=== PATIENT | female | born 1980 | race Caucasian/White ===

== ENCOUNTER 2018-03-06 13:32 | Emergency (ER) | payer BC, OTHER ==
[2018-03-06 13:41] VITALS: BP 126/86
[2018-03-06] MEDS ORDERED: Acetaminophen/HYDROcodone 325-5 MG Tab PO ONE (14:18)
--- NOTE | 2018-03-06 14:18 | EDM.PDOC ---
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 She complains of pain to all 5 of her toes, plus her distal right foot. She is otherwise uninjured. No prior right foot injury. The patient's PCP is Dr. Benoit. Treatments DISTRIBUTION AGENT: Reports: Other (see below) Other Treatments DISTRIBUTION AGENT: ice applied to top of foot Right Feet Pain Score (Numeric/FACES): 8 - Related Data Allergies Allergy/AdvReac Type Severity Reaction Status Date / Time No Known Allergies Allergy Verified 10/28/15 19:14 Home Meds: Home Meds Acetaminophen/HYDROcodone [[place] 325-5 MG] 1 - 2 tab PO Q6H PRN #14 tablet 03/06 [Rx] Phentermine HCl 15 mg PO DAILY 03/06/18 [History] Past Medical History - Past Surgical History Female Surgical History: Reports: Tubal Ligation Social & Family History - Tobacco Use Smoking Status *Q: Current Every Day Smoker Years of Tobacco use: 19 Packs/Tins Daily: 0.3 - Caffeine Use Caffeine Use: Reports: Coffee - Alcohol Use Alcohol Use History: Yes Alcohol Use Frequency: Socially - Recreational Drug Use Recreational Drug Use: No - Living Situation & Occupation Living situation: Reports: , with Spouse, with Family (5 kids) Occupation: Employed ([employer] F[employer]ER at [employer]) Review of Systems - Review of Systems Review Of Systems: ROS reveals no pertinent complaints other than HPI. ED EXAM, GENERAL - Physical Exam Exam: See Below Exam Limited By: No Limitations General Appearance: Alert, WD/WN, Mild Distress Extremities: Other (Mild swelling to all 5 toes, including toe #3, but no other visible abnormality, such as a hoof demarcation, erythema, ecchymosis, or abrasion. Neurovascular status of the right foot is intact.) Course - Vital Signs Last Recorded V/S: Last Vital Signs Temp 36.6 C 03/06/18 13:40 Pulse 94 03/06/18 13:40 Resp 20 03/06/18 13:40 BP 126/86 03/06/18 13:40 Pulse Ox 100 03/06/18 13:40 - Orders/Labs/Meds Orders: Active Orders 24 hr Category Date Time Status DME for Discharge [COMM] Stat Oth 03/06/18 14:19 Ordered Meds: Medications Discontinued Medications Generic Name Dose Route Start Last Admin Trade Name Freq PRN Reason Stop Dose Admin Hydrocodone Bitart/Acetaminophen 2 tab 03/06/18 14:18 03/06/18 14:39 [place] 325-5 Mg PO 03/06/18 14:19 2 tab ONETIME ONE Administration Ibuprofen 600 mg 03/06/18 14:26 03/06/18 14:38 Motrin PO 03/06/18 14:27 600 mg ONETIME ONE Administration - Re-Assessments/Exams Free Text/Narrative Re-Assessment/Exam: 03/06/18 14:11 3-view radiographs of the right foot appear to demonstrate a fracture and moderate posterior displacement of the proximal phalanx of the third toe. No other injuries seen. Formal read per the Radiologist pending. 03/06/18 14:20 The patient's 3rd toe be rai taped to her 2nd toe. She'll be fitted for an ortho shoe. She will receive 2 tablets of [place] here in the ED, and I will prescribe her additional. She is to ice and elevate her right foot is much as possible over the next 2 days, and I will refer her to Dr. Arias. Departure - Departure Time of Disposition: 14:22 Disposition: Home, Self-Care 01 Condition: Fair Clinical Impression: Closed fracture of phalanx of right third toe - Discharge Information *PRESCRIPTION DRUG MONITORING PROGRAM REVIEWED*: Not Applicable *COPY OF PRESCRIPTION DRUG MONITORING REPORT IN PATIENT FREDDY: Not Applicable Prescriptions: Acetaminophen/HYDROcodone [[place] 325-5 MG] 1 - 2 tab PO Q6H PRN #14 tablet PRN Reason: Pain (Severe 7-10) Instructions: Toe Fracture, [id number] Referrals: Gautam Fong MD [Primary Care Provider] - Garland Arias MD [Physician] - Forms: ED Department Discharge Additional Instructions: You were seen in the emergency room after a horse stomped on your right foot. Workup in the ER included x-rays of your right foot, which found a fracture of the distal aspect of the proximal phalanx of your third toe, with posterior displacement. Your third toe was rai taped to your second toe. You may replace this rai tape daily. You have been fitted with an ortho shoe, which you may find to be more comfortable to walk in than soft shoes. Elevate and ice your right foot as much as possible over the next 2-3 days, to help minimize swelling. Take [id number] ibuprofen, 2-3 tablets (400-600 mg) every 8 hours, with food, [id number]. A prescription for the opioid pain reliever [place] has been provided to you. Take 1-2 tablets up to every 6 hours, as needed for pain not relieved by ibuprofen. If you take Roan[place], do not drive for 10 hours afterwards. [place] will likely cause constipation, so consider taking a stool softener. Follow-up with the orthopedic surgeon Dr. Garland Arias at the next available appointment. If any other problems, please do not hesitate to return to the ER. - My Orders Last 24 Hours: My Active Orders 03/06/18 14:19 DME for Discharge [COMM] Stat - Assessment/Plan Last 24 Hours: My Active Orders 03/06/18 14:19 DME for Discharge [COMM] Stat
[2018-03-06] MEDS ORDERED: Ibuprofen 600 MG Tab PO ONE (14:26)
--- NOTE | 2018-03-07 07:12 | CR ---
Right foot: Four views of the right foot were obtained. Comparison: No prior foot exam. Mildly displaced fracture identified within the distal proximal phalanx of the third toe. No additional fracture or other bony abnormality is seen. Impression: 1. Mildly displaced fracture within the proximal phalanx of the third toe. 2. Right foot exam is otherwise unremarkable. Diagnostic code #3
== END 2018-03-06 14:45 | disposition home or self-care (01) ==
LOC: JD.ED 13:32
DX: S92.511A Displaced fracture of proximal phalanx of right lesser toe(s), initial encounter for closed fracture (principal); F17.210 Nicotine dependence, cigarettes, uncomplicated; W55.12XA Struck by horse, initial encounter
CPT/HCPCS: 73630; 99284; A9270

== ENCOUNTER 2018-07-25 09:34 | Emergency (ER) | payer OTHER ==
[2018-07-25 09:43] VITALS: BP 126/86
--- NOTE | 2018-07-25 10:15 | EDM.PDOC ---
ED HPI GENERAL MEDICAL PROBLEM - General Chief Complaint: Back Pain or Injury Stated Complaint: BACK INJURY Time Seen by Provider: 07/25/18 10:08 - History of Present Illness INITIAL COMMENTS - FREE TEXT/NARRATIVE: 38-year-old female presents emergency room low back pain. 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 This is not getting any better. Patient was moving a patient sliding across a horizontal surface. She felt a pop in her back and developed significant discomfort the pain is mostly on the right side not in the midline. She has not had any loss of bowel or bladder control she has pain that goes down the back of her thigh stops at the knee. 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 Right Lower Back Pain Score (Numeric/FACES): 10 - Related Data Allergies Allergy/AdvReac Type Severity Reaction Status Date / Time banana Allergy Anaphylactic Verified 07/25/18 09:43 Shock walnut Allergy Anaphylactic Verified 07/25/18 09:43 Shock Home Meds: Home Meds Phentermine HCl 15 mg PO DAILY 03/06/18 [History] Lotion Base No.203 [Versapro Lotion Base] 1 dose TOP ASDIRECTED 04/13/18 [ History] Multivitamin [Multiple Vitamins] 1 tab PO DAILY 04/13/18 [History] Acetaminophen/HYDROcodone [[place] 325-5 MG] 1 - 2 tab PO Q6H PRN #30 tablet 04/14 [Rx] Aspirin 325 mg PO BID #84 tab 04/14/18 [Rx] Famotidine [Pepcid] 20 mg PO Q12HR #20 tablet 07/25/18 [Rx] predniSONE 60 mg PO WITHBREAKFAST #15 tab 07/25/18 [Rx] Past Medical History - Past Health History Medical/Surgical History: Denies Medical/Surgical History HEENT History: Reports: Impaired Vision, Other (See Below) Other HEENT History: wears glasses Cardiovascular History: Reports: None Respiratory History: Reports: None Gastrointestinal History: Reports: None Genitourinary History: Reports: None CQ DEVELOPER History: Reports: None Musculoskeletal History: Reports: None Neurological History: Reports: None Psychiatric History: Reports: Anxiety, Bipolar Endocrine/Metabolic History: Reports: None Hematologic History: Reports: None Immunologic History: Reports: None Oncologic (Cancer) History: Reports: None Dermatologic History: Reports: None - Past Surgical History Head Surgeries/Procedures: Reports: None Cardiovascular Surgical History: Reports: None Respiratory Surgical History: Reports: None GI Surgical History: Reports: None Female Surgical History: Reports: Breast Implant, Tubal Ligation Endocrine Surgical History: Reports: None Neurological Surgical History: Reports: None Musculoskeletal Surgical History: Reports: None Oncologic Surgical History: Reports: None Dermatological Surgical History: Reports: None Social & Family History - Tobacco Use Smoking Status *Q: Current Every Day Smoker Years of Tobacco use: 20 Packs/Tins Daily: 0.2 - Caffeine Use Caffeine Use: Reports: Coffee - Recreational Drug Use Recreational Drug Use: No - Living Situation & Occupation Living situation: Reports: , with Spouse, with Family (5 kids) Occupation: Employed ([employer] at [employer] ED ROS GENERAL - Review of Systems Review Of Systems: See Below Constitutional: Reports: No Symptoms Respiratory: Reports: No Symptoms Cardiovascular: Reports: No Symptoms GI/Abdominal: Reports: No Symptoms : Reports: No Symptoms ED EXAM,LOWER BACK PAIN/INJURY - Physical Exam Exam: See Below Exam Limited By: No Limitations General Appearance: Alert, No Apparent Distress Neck: Normal Inspection, Supple, Non-Tender, Full Range of Motion. No: Lymphadenopathy (L), Lymphadenopathy (R) Respiratory/Chest: No Respiratory Distress, Lungs Clear, Normal Breath Sounds Cardiovascular: Regular Rate, Rhythm, No Edema, No Murmur Back Exam: Normal Inspection, Other (She has significant paraspinous tenderness on the right side from the SI joint on up into the lower thoracic region. She has no midline discomfort no bony discomfort. Straight leg raises are unremarkable.). No: CVA Tenderness (L), CVA Tenderness (R), Vertebral Tenderness Course - Vital Signs Last Recorded V/S: Last Vital Signs Temp 36.6 C 07/25/18 09:40 Pulse 92 07/25/18 09:40 Resp 18 07/25/18 09:40 BP 126/86 07/25/18 09:40 Pulse Ox 100 07/25/18 09:40 - Re-Assessments/Exams Free Text/Narrative Re-Assessment/Exam: 07/25/18 10:38 This patient is a 3 week history of low back injury strain. She is getting somewhat frustrated muscle relaxants haven't helped multiple visits to the chiropractor has not helped. She's using 1 ibuprofen 200 mg and one Tylenol 4 times a day and this is not working overtime this is actually getting worse. I had the opportunity to schedule sutures Dr. Arzate who believes her discomfort is coming from the SI joint and I believe this could very well be the case with some secondary muscle spasm in the right paraspinous and surrounding muscles. Discussed potential treatment options it seems best at this point as the patient is getting worse to her with some prednisone 60 mg daily for 5 days and close follow-up with Dr. Arzate. Departure - Departure Time of Disposition: 10:39 Disposition: Home, Self-Care 01 Clinical Impression: Low back strain, SI (sacroiliac) joint inflammation - Discharge Information Prescriptions: Famotidine [Pepcid] 20 mg PO Q12HR #20 tablet predniSONE 60 mg PO WITHBREAKFAST #15 tab Referrals: Gautam Fong MD [Primary Care Provider] - Forms: ED Department Discharge Additional Instructions: Return to the emergency room with any questions or problems. Follow-up with Dr. Arzate on or Wednesday. Stop ibuprofen Tylenol or any aspirin. Take prednisone as directed, this will be 3 tablets every morning for 5 days
== END 2018-07-25 10:54 | disposition home or self-care (01) ==
LOC: JD.ED 09:34
DX: S39.012A Strain of muscle, fascia and tendon of lower back, initial encounter (principal); M46.1 Sacroiliitis, not elsewhere classified; F17.210 Nicotine dependence, cigarettes, uncomplicated; Z91.018 Allergy to other foods; Z79.899 Other long term (current) drug therapy; X50.9XXA Other and unspecified overexertion or strenuous movements or postures, initial encounter
CPT/HCPCS: 99283

== ENCOUNTER 2023-07-16 12:08 | Emergency (ER) | payer MEDICAID, OTHER ==
[2023-07-16] MEDS ORDERED: Sodium Chloride 0.9% 10 ML Syringe FLUSH PRN (12:36)
[2023-07-16 12:59] LABS: BASOPHILS ABSOLUTE AUTO 0.1 K/mm3 (0.0-0.2); BASOPHILS PERCENT AUTO 1.1 % (0.0-1.0); EOSINOPHILS ABSOLUTE AUTO 0.1 K/mm3 (0.0-0.4); EOSINOPHILS PERCENT AUTO 2.2 % (0.0-6.0); HEMATOCRIT 37.7 % (37.0-47.0); HEMOGLOBIN 12.5 gm/dl (12.0-16.0); IMMATURE GRAN ABSOLUTE AUTO 0.02 K/mm3 (0.00-0.05); IMMATURE GRAN PERCENT AUTO 0.4 % (0.0-0.4); LYMPHOCYTES ABSOLUTE AUTO 1.7 K/mm3 (1.0-4.8); LYMPHOCYTES PERCENT AUTO 30.9 % (24.0-44.0); MEAN CORPUSCULAR HEMOGLOBIN 31.3 pg (28.0-32.0); MEAN CORPUSCULAR HGB CONC 33.2 g/dl (32.0-36.0); MEAN CORPUSCULAR VOLUME 94.5 fl (83.0-99.0); MEAN PLATELET VOLUME 8.6 fl (9.4-12.3); MONOCYTES ABSOLUTE AUTO 0.3 K/mm3 (0.0-0.8); MONOCYTES PERCENT AUTO 5.4 % (0.0-8.0); NEUTROPHILS ABSOLUTE AUTO 3.3 K/mm3 (1.8-7.7); PLATELET COUNT,PLT 234 K/mm3 (150-400); RED BLOOD CELL COUNT 3.99 M/mm3 (4.10-5.30); WHITE BLOOD CELL COUNT,WBC 5.51 K/mm3 (3.9-11.3)
[2023-07-16 13:30] LABS: A/G RATIO 1.1 (1-2); ALBUMIN 3.4 g/dl (3.4-5.0); ANION GAP 13.7 (5-15); BILIRUBIN TOTAL 0.2 mg/dL (0.2-1.0); CALCIUM 8.3 mg/dL (8.5-10.1); EST CRCL DRUG DOSING (CG) 66.51 mL/min; MAGNESIUM 2.1 mg/dL (1.8-2.4); POTASSIUM,K 3.7 mEq/L (3.5-5.1); PROTEIN TOTAL,TP 6.5 g/dl (6.4-8.2); TSH 1.697 uIU/mL (0.358-3.74)
[2023-07-16] MEDS ORDERED: Ketorolac 30 MG/ML SDV IVPUSH ONE (14:15)
[2023-07-16] MEDS ORDERED: Magnesium Sulfate (4.06 MEQ/ML) 5 GM/10 ML SDV IV ONE (14:15)
[2023-07-16 14:19] LABS: APPEARANCE,URINE CLEAR (Clear); BILIRUBIN,URINE NEGATIVE (Negative); COLOR,URINE YELLOW (Yellow); GLUCOSE,URINE NEGATIVE (Negative); KETONES,URINE NEGATIVE (Negative); LEUKOCYTE ESTERASE,URINE NEGATIVE (Negative); NITRITE,URINE NEGATIVE (Negative); OCCULT BLOOD,URINE 1+ (Negative); PROTEIN,URINE NEGATIVE (Negative); UROBILINOGEN,URINE 0.2 (0.2-1.0)
[2023-07-16 14:24] LABS: INR 0.97; PROTHROMBIN TIME 10.4 SECONDS (9.7-12.0)
[2023-07-16 14:25] LABS: D-DIMER QUANTITATIVE < 0.19 mg/L (0.19-0.50)
[2023-07-16 14:26] LABS: BACTERIA,URINE FEW /hpf (FEW); EPITHELIAL CELLS,URINE 0-5 /hpf (0-5); MUCUS,URINE FEW /hpf (FEW); WBC,URINE 0-5 /hpf (0-5)
[2023-07-16 14:26] LABS: PTT,PARTIAL THROMBOPLSTIN TIME 25.7 SECONDS (21.7-31.4)
[2023-07-16 19:09] VITALS: BP 134/95; PULSE 66
== END 2023-07-16 19:06 | disposition home or self-care (01) ==
LOC: JD.ED 12:08
DX: G43.809 Other migraine, not intractable, without status migrainosus (principal); I10 Essential (primary) hypertension; F17.210 Nicotine dependence, cigarettes, uncomplicated; Z91.018 Allergy to other foods; Z79.82 Long term (current) use of aspirin; Z79.899 Other long term (current) drug therapy
CPT/HCPCS: 36415; 70450; 70450-26; 70496; 70496-26; 70498; 70498-26; 70551; 70551-26; 80053; 81001; 83540; 83735; 83880; 84443; 84484; 84703; 85025; 85379; 85610; 85730; 86140; 93005; 93010; 96365; 96375; 99284; 99284-25; J1885; J3475; J3490